=== PATIENT | male | born 1975 | race Caucasian/White ===

== ENCOUNTER 2017-06-03 02:28 | Emergency (ER) | payer BC, OTHER ==
[~2017-06-03] VITALS: Ht 190.5 cm; Wt 90.7 kg
--- NOTE | 2017-06-03 02:40 | NUR ---
BB SELF WITH C/O OF ABD PAIN. PT STATING "WOKE UP WITH JOYCELYN UPPER QUAD PAIN". PT DENIES N/V/D. PT IS AAOX4. RESP EVEN AND NONLABORED. SKIN PINK AND WARM. NO S/S OF ACUTE DISTRESS NOTED. VSS. AWAITING MD FOR EVAL. PT PLACED ON CONTINOUS MONITOR AND POX
--- NOTE | 2017-06-03 02:45 | NUR ---
BEDSIDE FOR EVAL
[2017-06-03] MEDS ORDERED: MAG HYDROX/AL HYDROX/SIMETH 30 ML UDC ONE (02:54)
[2017-06-03] MEDS ORDERED: LIDOCAINE VISCOUS 2% UD 15 ML UDC ONE (02:54)
[2017-06-03] MEDS ORDERED: ONDANSETRON HCL/PF 4 MG/2 ML VIAL ONE (02:55)
[2017-06-03] MEDS ORDERED: FAMOTIDINE/PF INJ 20 MG/2 ML VIAL IV ONE ×2 (02:55→03:00)
[2017-06-03] MEDS ORDERED: MORPHINE SULFATE INJ 4 MG/ML DISP.SYRIN ONE (02:55)
[2017-06-03] MEDS ORDERED: ONDANSETRON HCL/PF 4 MG/2 ML VIAL IV ONE (03:00)
[2017-06-03] MEDS ORDERED: MAG HYDROX/AL HYDROX/SIMETH 30 ML UDC PO ONE (03:00)
[2017-06-03] MEDS ORDERED: LIDOCAINE VISCOUS 2% UD 15 ML UDC MM ONE (03:00)
[2017-06-03] MEDS ORDERED: MORPHINE SULFATE INJ 4 MG/ML DISP.SYRIN IV ONE (03:00)
[2017-06-03 03:20] LABS: BASOPHILS % (AUTO) 0.2 % (0.0-2.0); EOSINOPHILS # (AUTO) 0.2 /CMM (0.0-0.7); HEMATOCRIT 41 % (39-51); HEMOGLOBIN 14.3 g/dL (13.5-17.5); LYMPHOCYTES % (AUTO) 32.3 % (20.0-44.0); MEAN CORPUSCULAR HEMOGLOBIN 31 PG (26.0-33.0); MEAN CORPUSCULAR HGB CONC 35 g/dl (31.0-36.0); MEAN CORPUSCULAR VOLUME 89 fL (80-96); MONOCYTES # (AUTO) 0.5 /CMM (0.1-1.30); MONOCYTES % (AUTO) 7.6 % (2.0-12.0); NEUTROPHILS # (AUTO) 3.5 /CMM (1.8-8.9); NEUTROPHILS % (AUTO) 56.9 % (43.0-81.0); PLATELET COUNT (AUTO) 169 /CMM (150-450); RDW COEFFICIENT OF VARIATION 13.2 (11.5-15.0); RED BLOOD CELL COUNT(AUTO) 4.64 MIL/uL (4.5-6.0); WHITE BLOOD COUNT (AUTO) 6.2 K/uL (4.3-11.0)
--- NOTE | 2017-06-03 03:30 | NUR ---
Patient is resting comfortably in bed with eyes closed. Easily aroused. VSS
[2017-06-03 03:31] LABS: CALCIUM, SERUM 9.1 mg/dL (8.5-10.1); CREATININE 1.2 mg/dL (0.6-1.3); POTASSIUM 3.8 mmol/L (3.5-5.1)
[2017-06-03 03:35] LABS: INR 0.92 (0.87-1.13)
[2017-06-03 03:36] LABS: BILIRUBIN,DIRECT 0.2 mg/dL (0.0-0.2); BILIRUBIN,TOTAL 0.5 mg/dL (0.2-1.0); TOTAL PROTEIN, SERUM 7.4 g/dL (6.4-8.2)
--- NOTE | 2017-06-03 04:16 | NUR ---
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
--- NOTE | 2017-06-03 05:16 | NUR ---
Patient is resting comfortably in bed with eyes closed. Easily aroused. VSS
--- NOTE | 2017-06-03 06:10 | NUR ---
Patient discharged to home in stable condition. Written and verbal after care instructions given. Patient verbalizes understanding of instruction.IV removed. Catheter intact and site benign. Pressure and 4x4 applied to site. No bleeding noted. PT AMBULATED WITH STEADY GAIT OUT OF ER.
[2017-06-03 06:13] VITALS: BP 123/66
== END 2017-06-03 06:15 | disposition home or self-care (01) ==
LOC: ER 02:29
DX: R10.13 Epigastric pain (principal); Q61.3 Polycystic kidney, unspecified; K76.89 Other specified diseases of liver; Z88.2 Allergy status to sulfonamides; Z90.49 Acquired absence of other specified parts of digestive tract
CPT/HCPCS: 36415; 71045-TC; 76700-TC; 80048-TC; 80076-TC; 83690-TC; 85025-TC; 85730-TC; A4606; J2270; J2405; J3490; Z7610